=== PATIENT | female | born 1930 | race Caucasian/White ===

== ENCOUNTER → 2016-03-22 | Outpatient (CLI) | payer OTHER, MEDICARE ==
--- NOTE | 2016-03-22 13:11 | US ---
Bilateral Lower Extremity Deep Venous Duplex Doppler Ultrasound History: Bilateral lower extremity leg pain and swelling. Technique: The right and left lower extremity deep venous system and veins of the proximal calf were interrogated with grayscale, color, and spectral Doppler imaging. Findings: Right lower extremity: The right common femoral, superficial femoral, popliteal, and veins of the haile f normally compress on grayscale imaging. The deep venous system and veins of the proximal calf have normal flow and expected variability. The visualized greater saphenous vein compresses normally witho ut thrombus. Mild edema is present within the calf. Left lower extremity: The left common femoral, superficial femoral, popliteal, and veins of the calf normally compress on grayscale imaging. The deep venous system and veins of the proximal calf have no rmal flow and expected variability. The visualized greater saphenous vein compresses normally without thrombus. Mild edema is present within the calf. In the left inguinal region there is a small subcen timeter reactive node. Impression: 1. No deep venous thrombosis in the right and left lower extremity. 2. Small subcentimeter reactive node left inguinal region.
--- NOTE | 2016-03-22 13:20 | DX ---
Left femur series 2 views 1007 hours. History: Pain. Previous fracture. Findings: Comparison to February 18, 2016. Intramedullary tao remains in place left femur with internal fixation pin extending into the femoral head. Intertrochanteric left hip fracture is once again noted. There is persistent lucent line at the fracture site with a small amount of callus formation identified. There is no change in alignment of the fracture. The remainder of the left femur is normal in appearance. Vascular calcifications are e vident. The left hip joint space is stable in appearance without significant narrowing. Mild degenera tive changes are noted at the knee joint. Impression: 1. Persistent fracture line involving the intertrochanteric region proximal left femur with only a sm all amount of callus formation identified. 2. Stable appearance of the intramedullary tao as well as hip pin in place.
--- NOTE | 2016-03-22 13:56 | DX ---
Right femur series 2 views 1133 hours. History: Hip pain. Findings: Comparison to December 24, 2015. Marked degenerative changes are once again noted right femoral head and hip with joint space narrowin g, endplate sclerosis, subchondral cystic change, and flattening of the femoral head. Hypertrophic os teophyte is also present. The remainder of the right femur is normal in appearance. There is right to emile knee replacement present. Vascular calcifications are noted in the soft tissues. Impression: 1. Stable marked degenerative change right hip. 2. Right total knee replacement noted.
== END ==
LOC: BMCIMAGING 10:03
PROVIDERS: ATTEND Orthopaedic Surgery
DX: M25.551 Pain in right hip (principal); M16.11 Unilateral primary osteoarthritis, right hip; S72.142D Displaced intertrochanteric fracture of left femur, subsequent encounter for closed fracture with routine healing

== ENCOUNTER → 2016-04-26 | Outpatient (CLI) | payer OTHER, MEDICARE | LOC: BMCIMAGING 13:46 | PROVIDERS: ATTEND Orthopaedic Surgery | DX: S72.8X2D Other fracture of left femur, subsequent encounter for closed fracture with routine healing (principal) ==

== ENCOUNTER → 2016-06-29 | Outpatient (CLI) | payer OTHER, MEDICARE | LOC: BMCIMAGING 10:38 | PROVIDERS: ATTEND Orthopaedic Surgery | DX: S72.142D Displaced intertrochanteric fracture of left femur, subsequent encounter for closed fracture with routine healing (principal); M16.11 Unilateral primary osteoarthritis, right hip ==